=== PATIENT | male | born 1960 | race African-American/Black ===

== ENCOUNTER 2018-07-20 01:10 | Emergency (ER) | payer OTHER ==
[~2018-07-20] VITALS: Ht 182.9 cm; Wt 136.1 kg
--- NOTE | ~2018-07-20 | EKG ---
[address] [address] ELECTROCARDIOGRAM REPORT Name: BRET BORRERO Narendra [id number] Admission: 07/20/18 Attend Phys: Discharge: 07/20/18 Date of : 56 Report #: [id number] THIS REPORT FOR: //name// [facility] ED Test Date: 2018-07-20 Test Time: 01:26:00 Pat Name: BRET BORRERO Department: Room: Gender: [employer]: md : 1960 Requested By: Hitesh Franklin Order Number: [id number] MD: Ricco Brewer Measurements Intervals Erwin Rate: 80 P: 74 IL: 173 QRS: 44 QRSD: 114 T: 10 QT: 393 QTc: 454 Interpretive Statements Sinus rhythm Incomplete right bundle branch block No previous ECG available for comparison Electronically Signed On 07-20-2018 10:23:52 [employer]IV[employer] ADVIS[employer] by Ricco Brewer [email or web address] <ELECTRONICALLY SIGNED> By: Ricco Brewer MD 07/20/18 1023 0126 [id number] Ricco Brewer MD /EPI
[2018-07-20] MEDS ORDERED: [UNRECOGNIZED DRUG - REMARK] (01:54)
[2018-07-20] MEDS ORDERED: NO HOME MED (01:55)
[2018-07-20 01:59] LABS: AMP/METHAMP Negative (Negative); BARBITURATES Negative (Negative); BENZODIAZEPINES Negative (Negative); COCAINE Negative (Negative); METHADONE Negative (Negative); OPIATES Negative (Negative); PCP Negative (Negative)
[2018-07-20 02:50] LABS: ABSOLUTE NEUTROPHILS 4.3 thou/uL (1.4-8.2); BASOPHILS 0.9 % (0.0-2.0); EOSINOPHILS 4.8 % (0.0-3.0); HEMATOCRIT 34.3 % (42.0-52.0); LYMPHOCYTES 29.5 % (24.0-44.0); MCH 20.4 pg (26.0-34.0); MCV 63.8 fL (80.0-100.0); MONOCYTES 8.6 % (1.0-8.0); PLATELET COUNT 179 thou/uL (150-400); POLYS 56.2 % (36.0-66.0); RBC 5.39 mil/uL (4.50-6.00); RDW 18.4 % (10.5-14.5); WBC 7.6 thou/uL (4.0-11.0)
[2018-07-20 03:01] LABS: ANION GAP 8 mmol/L (7-16); BUN 21 mg/dL (7-18); CALCIUM 8.6 mg/dL (8.5-10.1); CHLORIDE 106 mmol/L (98-107); CO2 28 mmol/L (21-32); CREATININE 1.2 mg/dL (0.7-1.3); GLUCOSE 119 mg/dL (74-106); POTASSIUM 3.6 mmol/L (3.5-5.1); SODIUM 142 mmol/L (136-145)
[2018-07-20 03:09] LABS: TROPONIN-I <0.06 ng/mL (<0.06)
[2018-07-20 03:15] LABS: ANISOCYTOSIS 2+; LARGE PLATELETS OCCASIONAL; MICROCYTES 3+; POLYCHROMASIA 1+
[2018-07-20 03:16] LABS: HYPOCHROMASIA 3+
== END 2018-07-20 03:40 | disposition home or self-care (01) ==
LOC: ER 01:10
PROVIDERS: Emergency Medicine
DX: R20.2 Paresthesia of skin (principal); R25.1 Tremor, unspecified